=== PATIENT | male | born 2000 | race Caucasian/White ===

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

== ENCOUNTER 2021-08-20 13:35 | Emergency (ER) | payer OTHER ==
[2021-08-20 13:56] VITALS: BP 134/87; PULSE 60; TEMP 98.3; BMI 28.4
[2021-08-20] MEDS ORDERED: IBUPROFEN 400 MG TABLET (FP) PO ONE ×2 (14:40→14:41)
[2021-08-20 16:54] LABS: HIV INTERPRETATION NEGATIVE (NEGATIVE)
== END 2021-08-20 15:00 | disposition home or self-care (01) ==
LOC: JERFT 13:35
DX: S93.402A Sprain of unspecified ligament of left ankle, initial encounter (principal); X50.0XXA Overexertion from strenuous movement or load, initial encounter
CPT/HCPCS: 36415; 73610-TC-RT-FY; 73630-TC-RT-FY; 87389; 99284-25